=== PATIENT | female | born 1955 | race Caucasian/White ===

== ENCOUNTER → 2020-11-01 | Outpatient (CLI) | payer MEDICARE, MEDICAID ==
[~2020-11-01] MED LIST: KEPPRA 500MG500 MG PO; ONE-A-DAY ESSE1 EACH PO; PRIL40 PO
== END ==
LOC: COL.RAD
DX: G93.89 Other specified disorders of brain (principal); G40.909 Epilepsy, unspecified, not intractable, without status epilepticus; I60.7 Nontraumatic subarachnoid hemorrhage from unspecified intracranial artery; M79.604 Pain in right leg; M79.605 Pain in left leg; M72.2 Plantar fascial fibromatosis; R20.0 Anesthesia of skin; R20.2 Paresthesia of skin; Z98.890 Other specified postprocedural states
CPT/HCPCS: Q9967

== ENCOUNTER → 2020-12-10 | Outpatient (CLI) | payer MEDICARE, MEDICAID | LOC: COL.CARD 12:06 | DX: I60.7 Nontraumatic subarachnoid hemorrhage from unspecified intracranial artery (principal); G40.409 Other generalized epilepsy and epileptic syndromes, not intractable, without status epilepticus; M79.604 Pain in right leg; M79.605 Pain in left leg; M72.2 Plantar fascial fibromatosis; R20.0 Anesthesia of skin; R20.2 Paresthesia of skin ==

== ENCOUNTER → 2021-04-29 | Outpatient (CLI) | payer MEDICARE ==
[~2021-04-29] MED LIST changes: +B COMPLEX #11 TA1 PO; +NORCO 325 MG-51 TAB PO
== END ==
LOC: COL.RAD 14:26
DX: R13.10 Dysphagia, unspecified (principal)

== ENCOUNTER 2021-05-19 14:45 | Outpatient (RCR) | payer MEDICARE ==
[2021-06-24] MEDS ORDERED: KEPPRA 500MG500 MG PO (15:04)
[2021-06-24] MEDS ORDERED: ONE-A-DAY ESSE1 EACH PO (15:31)
[2021-06-24] MEDS ORDERED: PRIL40 PO (16:20)
== END 2021-07-16 | disposition home or self-care (01) ==
LOC: WSST
DX: R13.10 Dysphagia, unspecified (principal)

== ENCOUNTER → 2021-06-12 | Outpatient (CLI) | payer MEDICARE ==
[2021-06-13 00:05] LABS: HEPATITIS B SURFACE ANTIGEN Negative (Negative)
[2021-06-13 06:50] LABS: HEPATITIS B SURFACE ANTIBODY >1000 (())
[2021-06-14 01:02] LABS: TB GOLD INTERPRETATION Positive (Negative)
== END ==
LOC: COL.RAD 14:55 → COL.LAB 15:04
PROVIDERS: Registered Nurse
DX: R07.89 Other chest pain (principal); Z86.11 Personal history of tuberculosis; Z86.19 Personal history of other infectious and parasitic diseases
CPT/HCPCS: 87522

== ENCOUNTER 2021-06-24 14:50 | Emergency (ER) | payer MEDICARE ==
[~2021-06-24] VITALS: Ht 149.9 cm; Wt 46.4 kg
[2021-06-24] MEDS ORDERED: KEPPRA 500MG500 MG PO (15:04)
[2021-06-24 15:20] LABS: COLLECTION METHOD CLEAN CATCH
[2021-06-24 15:26] LABS: BASO % 0.3 % (0.0-2.0); EOS # 0.1 K/mm3 (0.0-0.7); EOS % 1.2 % (0-4.0); GRAN # 3.7 K/mm3 (1.4-6.5); GRAN % 53.1 % (42.2-75.2); HEMATOCRIT 37.7 % (37.0-47.0); HEMOGLOBIN 12.7 g/dl (12.5-16.0); LYMPH # 2.6 K/mm3 (1.2-3.4); LYMPH % 38.2 % (20.0-51.0); MEAN CELL VOLUME 91 fl (80.0-100.0); MEAN CORPUSCULAR HEMOGLOBIN 31 pg (27.0-31.0); MEAN CORPUSCULAR HGB CONC 34 g/dl (33.0-37.0); MEAN PLATELET VOLUME 10.3 fl (7.4-10.4); MONO # 0.5 K/mm3 (0.1-0.6); MONO % 7.1 % (1.7-9.3); PLATELET COUNT 205 K/mm3 (130-400); RED BLOOD COUNT 4.13 M/mm3 (4.10-5.30); REDCELL DISTRIBUTION WIDTH-CV 13.1 % (11.5-14.5)
[2021-06-24] MEDS ORDERED: ONE-A-DAY ESSE1 EACH PO (15:31)
[2021-06-24 15:36] LABS: MUCOUS Present /lpf; PH 5 (5-8); SQUAMOUS EPITHELIAL 0-2 /hpf; URINE APPEARANCE Clear; URINE BACTERIA None Seen /hpf; URINE BILIRUBIN Negative (NEGATIVE); URINE BLOOD Negative (NEGATIVE); URINE COLOR Yellow; URINE GLUCOSE Negative (NEGATIVE); URINE KETONE Negative (NEGATIVE); URINE LEUKOCYTE ESTERASE Negative (NEGATIVE); URINE NITRATE Negative (NEGATIVE); URINE PROTEIN(semi-quant) Negative (NEGATIVE); URINE RBC 0-2 /hpf; URINE UROBILINOGEN Negative (NEGATIVE)
[2021-06-24 15:40] LABS: ALBUMIN 4.2 gm/dL (3.4-4.8); BILIRUBIN,TOTAL 0.5 mg/dL (0.2-1.2); CALCIUM 9.9 mg/dL (8.4-10.2); CREATININE, serum 0.88 mg/dL (0.57-1.11); POTASSIUM 3.8 mmol/L (3.5-4.5); TOTAL PROTEIN 8.3 gm/dL (6.2-8.1)
[2021-06-24] MEDS ORDERED: PRIL40 PO (16:20)
[2021-06-24 16:31] VITALS: BP 118/74; PULSE 76
== END 2021-06-24 16:35 | disposition home or self-care (01) ==
LOC: COL.ER 14:50
PROVIDERS: Emergency Medicine
DX: R10.13 Epigastric pain (principal); F17.200 Nicotine dependence, unspecified, uncomplicated
CPT/HCPCS: J7030

== ENCOUNTER → 2021-07-07 | Outpatient (CLI) | payer MEDICARE ==
[2021-07-07 11:06] LABS: BASO % 0.4 % (0.0-2.0); EOS % 0.8 % (0-4.0); GRAN # 3.1 K/mm3 (1.4-6.5); GRAN % 59.1 % (42.2-75.2); HEMATOCRIT 38.4 % (37.0-47.0); HEMOGLOBIN 13.1 g/dl (12.5-16.0); LYMPH # 1.7 K/mm3 (1.2-3.4); LYMPH % 32.1 % (20.0-51.0); MEAN CELL VOLUME 90 fl (80.0-100.0); MEAN CORPUSCULAR HEMOGLOBIN 31 pg (27.0-31.0); MEAN CORPUSCULAR HGB CONC 34 g/dl (33.0-37.0); MEAN PLATELET VOLUME 10.7 fl (7.4-10.4); MONO # 0.4 K/mm3 (0.1-0.6); MONO % 7.4 % (1.7-9.3); PLATELET COUNT 206 K/mm3 (130-400); RED BLOOD COUNT 4.25 M/mm3 (4.10-5.30); REDCELL DISTRIBUTION WIDTH-CV 12.7 % (11.5-14.5)
[2021-07-07 11:34] LABS: ALBUMIN 4.2 gm/dL (3.4-4.8); TOTAL PROTEIN 8.7 gm/dL (6.2-8.1)
[2021-07-07 12:12] LABS: BILIRUBIN,DIRECT 0.3 mg/dL (0.0-0.5); BILIRUBIN,TOTAL 0.6 mg/dL (0.2-1.2)
== END ==
LOC: COL.LAB 10:14
PROVIDERS: Registered Nurse
DX: R76.11 Nonspecific reaction to tuberculin skin test without active tuberculosis (principal)

== ENCOUNTER → 2021-07-07 | Outpatient (CLI) | payer MEDICARE | LOC: COL.RAD 10:12 | DX: K80.20 Calculus of gallbladder without cholecystitis without obstruction (principal) ==

== ENCOUNTER 2021-07-29 10:11 | Day surgery (SDC) | payer MEDICARE ==
[~2021-07-29] VITALS: Ht 149.9 cm; Wt 44.6 kg
[~2021-07-29 10:11] MED LIST changes: -B COMPLEX #11 TA1 PO; -NORCO 325 MG-51 TAB PO
[2021-07-29 10:40] VITALS: BP 101/62; PULSE 75; TEMP 97.7
[2021-07-29] MEDS ORDERED: B COMPLEX #11 TA1 PO (11:11)
[2021-07-29] MEDS ORDERED: NORCO 325 MG-51 TAB PO (14:59)
[2021-07-29 15:45] VITALS: BP 118/57; PULSE 78; TEMP 97.2
--- NOTE | 2021-07-29 15:45 | NUR ---
Patient arrived back into [facility] from PACU, report recieved from [employer] OFFICER, Stacy. Patient drowsy but arousable, vital signs stable, stating having some discomfort around incision site. Patient wanting to rest for a bit.
[2021-07-29 16:00] VITALS: BP 107/64; PULSE 69
--- NOTE | 2021-07-29 16:10 | NUR ---
Patient alert and awake, requesting jello and water. Having some discomfort around incisional sites, PRN norco given per OCT. Patient tolerated food and drink with no complaint of pain.
[2021-07-29 16:17] VITALS: BP 118/57; PULSE 68
--- NOTE | 2021-07-29 16:30 | NUR ---
Patient went to restroom with stand by assistance. Was able to void successfully. Patient went back into room and got dressed independently.
--- NOTE | 2021-07-29 16:45 | NUR ---
Went through discharge instructions with patient. Questions answered, patient verbalized understanding to education. Patient's sister notified that patient was ready to be discharged.
--- NOTE | 2021-07-29 17:15 | NUR ---
Patient sister at ER entrance, patient escorted to the entrance via wheelchair and got into personal vehicle independently. Patient left in the care of her sister, Maay.
== END 2021-07-29 17:15 | disposition home or self-care (01) ==
LOC: SDCO 10:11
DX: K80.10 Calculus of gallbladder with chronic cholecystitis without obstruction (principal); K21.9 Gastro-esophageal reflux disease without esophagitis; R56.9 Unspecified convulsions; F41.9 Anxiety disorder, unspecified; F17.210 Nicotine dependence, cigarettes, uncomplicated; Z79.899 Other long term (current) drug therapy
CPT/HCPCS: J0330; J0690; J1100; J2250; J2405; J2704; J2765; J3010; J7120; Q9967

== ENCOUNTER → 2021-10-14 | Outpatient (CLI) | payer MEDICARE ==
[~2021-10-14] MED LIST changes: +ANTIVERT 25MG25 MG PO; +B COMPLEX #11 TA1 PO; +CALCIUM 600 PLU1 TAB PO; +NORCO 325 MG-51 TAB PO; +PRILOSEC 20MG20 MG PO; +VITAMIN B COMPL1 SGL PO; +VITAMIN D31000 I1 PO
== END ==
LOC: MC.RAD 10:14
DX: Z12.31 Encounter for screening mammogram for malignant neoplasm of breast (principal)